=== PATIENT | male | born 2000 | race Hispanic/Latino ===

== ENCOUNTER 2023-05-22 18:06 | Emergency (ER) | payer MEDICAID, SELFPAY ==
[2023-05-22 19:05] LABS: #Basophils 0.1 thou/uL (0.0-0.2); #Eosinphils 0.1 thou/uL (0.0-0.7); #Monocytes 1.1 thou/uL (0.11-0.59); #Neutrophils 12.4 thou/uL (1.40-6.50); %Basophils 0.3 % (0.0-1.0); %Eosinophils 0.3 % (0.0-10.0); %Lymphocytes 16.6 % (21.0-51.0); %Monocytes 6.9 % (0.0-10.0); %Neutrophils 75.4 % (42.0-75.0); Hemoglobin 15.4 g/dL (14.0-18.0); Mean Corpuscular HGB CONC 34.2 g/dL (32.0-36.0); Mean Corpuscular Hemoglobin 30.2 pg (27.0-31.0); Mean Corpuscular Volume 88.2 fl (78.0-98.0); Mean Platelet Volume 10.9 fL (7.4-10.4); Platelet Count 278 10x3/uL (130-400); RBC Distribution Width 12.6 % (11.5-14.5); White Blood Cell (WBC) Count 16.4 10x3/uL (4.8-10.8)
[2023-05-22 19:29] LABS: ALT (SGPT) 13 U/L (8-55); AST (SGOT) 19 U/L (5-34); Albumin 4.8 g/dL (3.5-5.0); Alkaline Phosphatase 100 U/L (40-110); Anion Gap 13 mmol/L (10-20); BUN (Urea Nitrogen) 5 mg/dL (8.9-20.6); Bilirubin, Total 0.6 mg/dL (0.2-1.2); Calc. Creatinine Clearance 0 mL/min (70-130); Calcium 10.1 mg/dL (7.8-10.44); Carbon Dioxide 26 mmol/L (22-29); Chloride 105 mmol/L (98-107); Estimated GFR 130; Globulin 2.9 g/dL (2.4-3.5); Glucose 107 mg/dL (70-105); Lipase 7 U/L (8-78); Potassium 4.1 mmol/L (3.5-5.1); Protein, Total 7.7 g/dL (6.0-8.3); Sodium 140 mmol/L (136-145)
[2023-05-22] MEDS ORDERED: Milk Of Magnesia 30 ML UDCUP ONE (19:38)
[2023-05-22] MEDS ORDERED: Sucralfate 1 GM/10 ML UDCUP ONE (19:38)
[2023-05-22] MEDS ORDERED: Ondansetron PF 4 MG/2 ML Vial ONE (19:38)
[2023-05-22] MEDS ORDERED: Pantoprazole 40 MG VIAL ONE (19:39)
[2023-05-22] MEDS ORDERED: Haloperidol Lactate 5 MG/ML VIAL ONE (20:20)
[2023-05-22] MEDS ORDERED: Ketorolac Tromethamine 30 MG (1 mL) VIAL ONE (20:21)
[2023-05-22 20:48] LABS: SARS-CoV-2 NAA Rapid Test Not Detected (NotDetected)
[2023-05-22 21:04] LABS: Acetaminophen Less than 10 mcg/mL (10.0-30.0); Alcohol Less than 10.0 mg/dL (Less than 10); Salicylate Less than 8.0 mg/dL (15.0-30.0)
== END 2023-05-22 20:48 | disposition home or self-care (01) ==
LOC: ERS 18:06
DX: R11.2 Nausea with vomiting, unspecified (principal); R10.13 Epigastric pain; I10 Essential (primary) hypertension
CPT/HCPCS: 36415; 71045; 76705; 80053; 80307; 83690; 85025; 93005; 96361; 96374; 96375; C9113; J1630; J1885; J2405

== ENCOUNTER 2023-10-09 06:16 | Emergency (ER) | payer SELFPAY ==
[2023-10-09 06:50] LABS: #Basophils Less than 0.03 10x3/uL (0.0-0.2); #Eosinphils Less than 0.03 10x3/uL (0.0-0.7); %Basophils 0.2 % (0.0-1.0); %Eosinophils 0.1 % (0.0-10.0); %Lymphocytes 11.2 % (21.0-51.0); %Monocytes 10.2 % (0.0-10.0); %Neutrophils 77.8 % (42.0-75.0); Hematocrit 45.1 % (42.0-52.0); Hemoglobin 16.5 g/dL (14.0-18.0); Mean Corpuscular HGB CONC 36.6 g/dL (32.0-36.0); Mean Corpuscular Hemoglobin 30.9 pg (27.0-31.0); Mean Corpuscular Volume 84.5 fL (78.0-98.0); Mean Platelet Volume 10.4 fL (7.4-10.4); Platelet Count 295 10x3/uL (130-400); Red Blood Cell (RBC) Count 5.34 mill/uL (4.70-6.10)
[2023-10-09 07:07] LABS: ALT (SGPT) 14 U/L (8-55); AST (SGOT) 21 U/L (5-34); Albumin 5.1 g/dL (3.5-5.0); Alkaline Phosphatase 100 U/L (40-110); Anion Gap 25 mmol/L (10-20); BUN (Urea Nitrogen) 19 mg/dL (8.9-20.6); Bilirubin, Total 3.5 mg/dL (0.2-1.2); Calc. Creatinine Clearance 0 mL/min (70-130); Carbon Dioxide 23 mmol/L (22-29); Chloride 87 mmol/L (98-107); Estimated GFR 113; Globulin 3.8 g/dL (2.4-3.5); Glucose 125 mg/dL (70-105); Lipase 8 U/L (8-78); Protein, Total 8.9 g/dL (6.0-8.3); Sodium 132 mmol/L (136-145)
[2023-10-09] MEDS ORDERED: Morphine 4 MG/ML VIAL ONE (07:35)
[2023-10-09] MEDS ORDERED: Ondansetron PF 4 MG/2 ML Vial ONE (07:35)
[2023-10-09] MEDS ORDERED: Potassium Chloride 20 MEQ (100 mL) BAG ONE (07:48)
[2023-10-09] MEDS ORDERED: Dicyclomine 20 MG/2 ML VIAL ONE (07:48)
[2023-10-09 08:15] LABS: Acetaminophen Less than 10 mcg/mL (10.0-30.0); Alcohol Less than 10.0 mg/dL (Less than 10); Salicylate Less than 8.0 mg/dL (15.0-30.0)
[2023-10-09] MEDS ORDERED: Famotidine/PF 20 mg/2ml Vial ONE (08:17)
[2023-10-09] MEDS ORDERED: Haloperidol Lactate 5 MG/ML VIAL ONE (08:19)
[2023-10-09 10:15] LABS: Bacteria/HPF None Seen HPF (None Seen); Bilirubin Negative (Negative); Blood, Urine Negative (Negative); CAUTI Indications for Culture Dysuria,urgency,freq; Clarity Clear (Clear); Glucose, Urine (Dipstick) Normal (Negative); Ketone, Urine 80 mg/dL (Negative); Leukocyte Negative Leu/uL (Negative); Nitrite Negative (Negative); Protein, Urine (Dipstick) 10 mg/dL (Neg-Trace); RBC/HPF 0-3 HPF (0-3); Specific Gravity, Urine 1.016 (1.002-1.036); Squamous Epithelial 0-3 HPF (0-3); Urobilinogen Normal mg/dL (Less than 2); WBC/HPF 0-3 HPF (0-3)
[2023-10-09 10:16] LABS: Urine Culture Reflex No No
[2023-10-09 10:20] LABS: Amphetamine Not Detected (NotDetected); Barbiturates Screen Not Detected (NotDetected); Benzodiazepine Screen Not Detected (NotDetected); Cocaine Metabolite Screen Not Detected (NotDetected); Methadone Not Detected (NotDetected); Methamphetamine Not Detected (NotDetected); Opiate Screen Detected (NotDetected); Oxycodone Screen Not Detected (NotDetected); Phencyclidine (PCP) Not Detected (NotDetected); THC/Cannabinoid Screen Not Detected (NotDetected); Tricyclic Screen Not Detected (NotDetected)
[2023-10-09] MEDS ORDERED: Lorazepam 1 MG TAB ONE (12:25)
== END 2023-10-09 12:29 | disposition home or self-care (01) ==
LOC: ERS 06:16
DX: R10.13 Epigastric pain (principal); R10.816 Epigastric abdominal tenderness; R11.10 Vomiting, unspecified; I10 Essential (primary) hypertension
CPT/HCPCS: 36415; 71045; 76705; 80053; 80306; 80307; 81001; 82274; 83605; 83690; 85025; 87040; 87086; 93005; 96372; 96374; 96375; J1630; J2270; J2405; J3480; S0028

== ENCOUNTER 2024-11-27 00:26 | Emergency (ER) | payer SELFPAY ==
[2024-11-27 00:46] LABS: Actual Bicarbonate (HCO3v) 24.9 mEq/L (22-28); Base Excess 2.0 mEq/L (-2.0 to +3.0); Calcium, Ionized (venous) 1.12 mmol/L (1.16-1.32); Chloride (VBG) 98 mmol/L (98-106); Hematocrit-VBG 54 % (42.0-52.0); Hemoglobin (Hb) 18.3 g/dL (13.2-17.3); Potassium (VBG) 3.92 mmol/L (3.70-5.30); Sodium 143 mmol/L (133-146)
[2024-11-27 00:50] LABS: #Basophils 0.03 10x3/uL (0.0-0.2); #Eosinophils Less than 0.03 10x3/uL (0.0-0.7); #Monocytes 1.08 10x3/uL (0.11-0.59); #Neutrophils 13.69 10x3/uL (1.40-6.50); %Basophils 0.2 % (0.0-1.0); %Eosinophils 0.1 % (0.0-10.0); %Lymphocytes 11.8 % (21.0-51.0); %Monocytes 6.4 % (0.0-10.0); %Neutrophils 81.0 % (42.0-75.0); Hematocrit 49.0 % (42.0-52.0); Hemoglobin 17.3 g/dL (14.0-18.0); Mean Corpuscular Hemoglobin 30.5 pg (27.0-31.0); Mean Corpuscular Volume 86.4 fL (78.0-98.0); Platelet Count 318 10x3/uL (130-400); Red Blood Cell (RBC) Count 5.67 mill/uL (4.70-6.10); White Blood Cell (WBC) Count 16.90 10x3/uL (4.8-10.8)
[2024-11-27 01:06] LABS: Acetaminophen Less than 10 mcg/mL (Less than 10); Salicylate Less than 8.0 mg/dL (Less than 8.0)
[2024-11-27 01:07] LABS: ALT (SGPT) 11 U/L (Less than 45); AST (SGOT) 18 U/L (11-34); Albumin 5.0 g/dL (3.1-4.5); Alkaline Phosphatase 116 U/L (40-110); Anion Gap 21 mmol/L (10-20); BUN (Urea Nitrogen) 13 mg/dL (8.9-20.6); Bilirubin, Total 1.1 mg/dL (0.3-1.2); Calc. Creatinine Clearance 0 mL/min (70-130); Calcium 10.3 mg/dL (7.8-10.44); Carbon Dioxide 28 mmol/L (22-29); Chloride 98 mmol/L (98-107); Globulin 3.0 g/dL (2.4-3.5); Glucose 152 mg/dL (70-105); Lipase 8 U/L (8-78); Magnesium 2.0 mg/dL (1.6-2.6); Potassium 3.9 mmol/L (3.5-5.1); Sodium 143 mmol/L (136-145)
[2024-11-27] MEDS ORDERED: Pantoprazole 40 MG VIAL ONE (01:19)
[2024-11-27] MEDS ORDERED: Ondansetron PF 4 MG/2 ML Vial ONE (01:19)
[2024-11-27 03:52] LABS: Free T4 (Free Thyroxine) 1.37 ng/dL (0.70-1.48); Thyroid Stimulating Hormone 0.8047 uIU/mL (0.35-4.94)
== END 2024-11-27 01:24 | disposition left against medical advice (07) ==
LOC: ERS 00:26
DX: R11.2 Nausea with vomiting, unspecified (principal); R10.13 Epigastric pain; I10 Essential (primary) hypertension; F17.210 Nicotine dependence, cigarettes, uncomplicated
CPT/HCPCS: 36416; 71045; 80053; 80307; 82010; 82805; 83605; 83690; 83735; 84439; 84443; 84481; 85025; 93005; J2405; J2470

== ENCOUNTER 2024-11-28 10:11 | Emergency (ER) | payer SELFPAY ==
[2024-11-28 11:31] LABS: Bacteria/HPF None Seen HPF (None Seen); CAUTI Indications for Culture Alt mental st,lethar; Glucose, Urine (Dipstick) Normal (Negative); Leukocyte Negative Leu/uL (Negative); Protein, Urine (Dipstick) Negative (Neg-Trace); RBC/HPF 0-3 HPF (0-3); Specific Gravity, Urine 1.015 (1.002-1.036); WBC/HPF 0-3 HPF (0-3)
[2024-11-28 11:34] LABS: Urine Culture Reflex No No
[2024-11-28] MEDS ORDERED: Ketorolac Tromethamine 30 MG (1 mL) VIAL ONE (11:35)
[2024-11-28 11:47] LABS: #Basophils 0.03 10x3/uL (0.0-0.2); #Eosinophils Less than 0.03 10x3/uL (0.0-0.7); #Monocytes 1.55 10x3/uL (0.11-0.59); #Neutrophils 11.96 10x3/uL (1.40-6.50); %Basophils 0.2 % (0.0-1.0); %Eosinophils 0.0 % (0.0-10.0); %Lymphocytes 10.9 % (21.0-51.0); %Monocytes 10.1 % (0.0-10.0); %Neutrophils 78.2 % (42.0-75.0); Hematocrit 44.5 % (42.0-52.0); Hemoglobin 16.0 g/dL (14.0-18.0); Mean Corpuscular Hemoglobin 30.7 pg (27.0-31.0); Mean Corpuscular Volume 85.2 fL (78.0-98.0); Platelet Count 242 10x3/uL (130-400); Red Blood Cell (RBC) Count 5.22 mill/uL (4.70-6.10); White Blood Cell (WBC) Count 15.30 10x3/uL (4.8-10.8)
[2024-11-28 12:09] LABS: ALT (SGPT) 8 U/L (Less than 45); AST (SGOT) 20 U/L (11-34); Albumin 4.7 g/dL (3.1-4.5); Alkaline Phosphatase 96 U/L (40-110); Anion Gap 18 mmol/L (10-20); BUN (Urea Nitrogen) 13 mg/dL (8.9-20.6); Bilirubin, Total 1.7 mg/dL (0.3-1.2); Calc. Creatinine Clearance 0 mL/min (70-130); Calcium 9.6 mg/dL (7.8-10.44); Carbon Dioxide 32 mmol/L (22-29); Chloride 95 mmol/L (98-107); Globulin 2.6 g/dL (2.4-3.5); Glucose 121 mg/dL (70-105); Lipase 10 U/L (8-78); Potassium 3.7 mmol/L (3.5-5.1); Sodium 141 mmol/L (136-145)
== END 2024-11-28 15:03 | disposition home or self-care (01) ==
LOC: ERS 10:11
DX: K59.00 Constipation, unspecified (principal); F32.A Depression, unspecified; F41.9 Anxiety disorder, unspecified; I10 Essential (primary) hypertension; Z87.891 Personal history of nicotine dependence
CPT/HCPCS: 74177; 76705; 80053; 81001; 83690; 85025; 96365; 96375; J1885; J2550

== ENCOUNTER 2025-01-01 08:03 | Emergency (ER) | payer BC, SELFPAY ==
[2025-01-01] MEDS ORDERED: Lidocaine Viscous Sol 2% 15 ml UD Cup ONE (08:33)
[2025-01-01] MEDS ORDERED: Mag-Al 1200 mg/1200 mg/30 ML UDCUP ONE (08:33)
== END 2025-01-01 09:57 | disposition home or self-care (01) ==
LOC: ERS 08:03
DX: K29.00 Acute gastritis without bleeding (principal); K27.9 Peptic ulcer, site unspecified, unspecified as acute or chronic, without hemorrhage or perforation; I10 Essential (primary) hypertension; Z87.891 Personal history of nicotine dependence
CPT/HCPCS: 71045; 87081; 87426; 87430

== ENCOUNTER 2025-01-28 23:07 | Emergency (ER) | payer BC | END 2025-01-28 23:54 | LOC: ERS 23:07 | DX: R11.0 Nausea (principal); I10 Essential (primary) hypertension; Z87.891 Personal history of nicotine dependence | CPT/HCPCS: 99283; Q0162 ==

== ENCOUNTER 2025-01-31 09:57 | Emergency (ER) | payer BC ==
[2025-01-31] MEDS ORDERED: Droperidol 5 MG/2 ML VIAL ONE (10:14)
[2025-01-31 10:37] LABS: Acetaminophen Less than 10 mcg/mL (Less than 10); Salicylate Less than 8.0 mg/dL (Less than 8.0)
[2025-01-31 10:52] LABS: Cocaine Metabolite Screen Negative (Negative); THC/Cannabinoid Screen Negative (Negative); Tricyclic Screen Negative (Negative)
== END 2025-01-31 10:43 | disposition home or self-care (01) ==
LOC: ERS 09:57
DX: R11.2 Nausea with vomiting, unspecified (principal); I10 Essential (primary) hypertension; Z87.891 Personal history of nicotine dependence
CPT/HCPCS: 74177; 80053; 80306; 80307; 81001; 83690; 85025; 96361; 96365; 96374; 96375; J1200; J1308; J1790; J1885; J2765; Q9967